=== PATIENT | female | born 2000 | race Caucasian/White ===

== ENCOUNTER 2018-02-02 17:34 | Emergency (ER) | payer MEDICAID, OTHER ==
[2018-02-02 17:46] VITALS: BP 121/71
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
== END 2018-02-02 18:28 | disposition home or self-care (01) ==
LOC: CED 17:34
DX: S01.05XA Open bite of scalp, initial encounter (principal); S51.851A Open bite of right forearm, initial encounter; S60.511A Abrasion of right hand, initial encounter; W50.3XXA Accidental bite by another person, initial encounter; Y92.69 Other specified industrial and construction area as the place of occurrence of the external cause; Y99.0 Civilian activity done for income or pay; Y93.89 Activity, other specified

== ENCOUNTER 2018-02-03 15:51 | Emergency (ER) | payer OTHER ==
[2018-02-03 16:09] VITALS: BP 112/61
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
== END 2018-02-03 16:41 | disposition home or self-care (01) ==
LOC: CED 15:51
DX: L08.9 Local infection of the skin and subcutaneous tissue, unspecified (principal); S60.410D Abrasion of right index finger, subsequent encounter; W50.3XXD Accidental bite by another person, subsequent encounter

== ENCOUNTER 2018-09-21 13:40 | Emergency (ER) | payer OTHER, MEDICAID ==
[2018-09-21 13:52] VITALS: BP 115/58
--- NOTE | 2018-09-21 14:22 | EDPHY ---
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 She explains that nearly half of the staff in patient has there been diagnosed with scabies over the past week. Her itching became more noticeable over the past 2 days. She notices primarily on her arms and back. ROS: Constitutional: No fevers. HEENT: No scalp symptoms. No intraoral lesions. No sore throat. No coryza Integumentary: No other skin complaints. No weeping lesions or discharge. 5 point review of symptoms is performed and otherwise negative with exception of pertinent positives and negatives listed in HPI and ROS Smoking Status: Current some day smoker Physical Exam: Physical Exam Vital signs are normal. General: No acute distress HEENT: Nose: Clear bilaterally. No sinus tenderness to percussion. Ears: External canals and tympanic membranes are clear with no erythema or abnormal findings bilaterally. Oropharynx: No erythema or exudates. No dysphonia. No drooling or stridor. Eyes: Pupils equal and react to light. Extraocular motions are intact. No conjunctival injection Neck: Supple with no meningismus. No lymphadenopathy Lungs: Clear to auscultation bilaterally with no rales, rhonchi or wheeze. No respiratory distress. Cardiac: Regular rate and rhythm with no murmur gallop or rub Skin: Patient has multiple erythematous papules to her back and left arm more than right arm. No fluctuant lesions. No petechia or purpura. Neuro: Alert with no focal deficits noted. Initial differential diagnosis: Scabies, nonspecific dermatitis, contact dermatitis Constitutional: Initial Vital Signs Temperature (C) 36.9 C 09/21/18 13:48 Heart Rate 91 09/21/18 13:48 Respiratory Rate 16 09/21/18 13:48 Blood Pressure 115/58 L 09/21/18 13:48 O2 Sat (%) 98 09/21/18 13:48 O2 Delivery Mode Room Air Allergies/Adverse Reactions: amoxicillin Allergy (Verified 09/21/18 13:47) Penicillins Allergy (Verified 09/21/18 13:47) Home Medications: Medication Instructions Recorded Permethrin 5% [Elimite 5%] 1 jo-ann TP ONCE #60 g 09/21/18 hydrOXYzine HCL [Hydroxyzine HCl] 50 - 100 mg PO QID PRN #80 tablet 09/21/18 MDM/Departure - [facility] ED Course/Re-evaluation: Given positive exposure history and characteristic lesions, this patient's findings are consistent clinically with scabies. I counseled regarding this. - Depart Disposition: Home, Routine, Self-Care Clinical Impression: Scabies Condition: Good Instructions: Permethrin (On the skin), Hydroxyzine (By mouth), Scabies (ED) Additional Instructions: Diagnosis: Scabies Plan: Head to toe treatment with Elimite Hydroxyzine for itching as needed Clean all of your sheets in hot water and detergent Return for any significant worsening despite treatment Stand Alone Forms: Work Excuse Prescriptions: hydrOXYzine HCL [Hydroxyzine HCl] 50 - 100 mg PO QID PRN #80 tablet PRN Reason: Itching Permethrin 5% [Elimite 5%] 1 jo-ann TP ONCE #60 g Referrals: NONE *PRIMARY CARE P,. [Primary Care Provider] - As per Instructions Abdirahman Reeder MD [Medical Doctor] - As per Instructions
== END 2018-09-21 14:33 | disposition home or self-care (01) ==
LOC: CED 13:40
DX: B86 Scabies (principal); F17.200 Nicotine dependence, unspecified, uncomplicated; Z88.0 Allergy status to penicillin
CPT/HCPCS: 99284-ER